=== PATIENT | female | born 1975 | race Two or more races ===

== ENCOUNTER 2016-09-24 13:19 | Observation (INO) | payer SELFPAY ==
[~2016-09-24] VITALS: Ht 154.9 cm; Wt 90.0 kg
[~2016-09-24 13:19] MED LIST: METF500T4 PO; SERT25TA3 PO
[2016-09-24] MEDS ORDERED: CITA10TA4 PO (14:07)
[2016-09-24 14:11] LABS: BLOOD UREA NITROGEN 16 mg/dL (7-18)
[2016-09-24 14:12] LABS: DAU SCREEN DISCLAIMER
[2016-09-24 14:13] LABS: ACETAMINOPHEN < 2 mcg/mL (10-30)
[2016-09-24 14:25] LABS: HCG UR OBC PASS
[2016-09-24] MEDS ORDERED: DOCUSATE 100 MG CAPSULE PO PRN (17:30)
[2016-09-24] MEDS ORDERED: TRAZODONE 50MG TABLET PO PRN (17:30)
[2016-09-24] MEDS ORDERED: ACETAMINOPHEN 325 MG TABLET PO PRN (17:30)
[2016-09-24] MEDS ORDERED: ONDANSETRON ODT 4 MG PO PRN (17:30)
[2016-09-24] MEDS: metFORMIN 500 MG TABLET PO SCH (20:13)
[2016-09-24 20:24] VITALS: BP 112/72
[2016-09-25 07:31] VITALS: BP 112/74
[2016-09-25] MEDS: metFORMIN 500 MG TABLET PO SCH ×2 (08:27→21:04)
[2016-09-25] MEDS: SERTRALINE 50MG TABLET PO SCH (08:27)
[2016-09-25 19:40] VITALS: BP 107/72
[2016-09-26 07:16] VITALS: BP 107/78
[2016-09-26] MEDS: metFORMIN 500 MG TABLET PO SCH (08:33)
[2016-09-26] MEDS: SERTRALINE 50MG TABLET PO SCH (08:34)
== END 2016-09-26 14:30 ==
LOC: ED 13:45 → EDIP 15:39 → 3E 18:19
PROVIDERS: ADMIT Internal Medicine; ATTEND Internal Medicine
DX: R45.851 Suicidal ideations (principal); E11.9 Type 2 diabetes mellitus without complications; I10 Essential (primary) hypertension; E66.9 Obesity, unspecified; Z83.3 Family history of diabetes mellitus; Z82.49 Family history of ischemic heart disease and other diseases of the circulatory system
CPT/HCPCS: 36415; 80048; 80307; 80329; 81025; 82040; 85025; 99285; G0378; G0480

== ENCOUNTER 2017-02-14 18:57 | Emergency (ER) | payer OTHER ==
[~2017-02-14] VITALS: Ht 162.6 cm; Wt 126.0 kg
[~2017-02-14 18:57] MED LIST changes: +CITA10TA4 PO
[2017-02-14] MEDS ORDERED: SODIUM CHLORIDE 0.9% 1,000ML IVBOLUS ONE (19:30)
[2017-02-14] MEDS ORDERED: ONDANSETRON 2MG/ML, 2ML IVPush ONE (19:30)
[2017-02-14] MEDS ORDERED: MORPHINE SULFATE 4 MG/ML, 1ML IVPush PRN (19:30)
[2017-02-14] MEDS ORDERED: SODIUM CHLORIDE FLUSH 10ML SYR IVF ONE (19:30)
[2017-02-14 19:57] LABS: ASPARTATE AMINO TRANSFERASE 19 U/L (15-37); BLOOD UREA NITROGEN 19 mg/dL (7-18)
[2017-02-14] MEDS ORDERED: ONDANSETRON 2MG/ML, 2ML ONE (20:00)
[2017-02-14] MEDS ORDERED: MORPHINE SULFATE 4 MG/ML, 1ML ONE (20:00)
[2017-02-14 20:22] LABS: HEMATOCRIT 43.2 % (34.6-47.8); HEMOGLOBIN 14.6 g/dL (11.7-16.4); WHITE BLOOD COUNT 7.3 x10^3/uL (3.4-10)
[2017-02-14 20:25] VITALS: BP 125/77
== END 2017-02-14 21:13 | disposition home or self-care (01) ==
LOC: ED 21:07
DX: E11.65 Type 2 diabetes mellitus with hyperglycemia (principal); R10.2 Pelvic and perineal pain; F20.9 Schizophrenia, unspecified; F31.9 Bipolar disorder, unspecified; I10 Essential (primary) hypertension; J45.909 Unspecified asthma, uncomplicated
CPT/HCPCS: 36415; 80053; 81003; 83690; 84703; 85025; 96361; 96374; 96375; 99284; J2405; J7030

== ENCOUNTER 2017-02-16 19:00 | Emergency (ER) | payer MEDICAID ==
[~2017-02-16] VITALS: Ht 152.4 cm; Wt 125.6 kg
[2017-02-16 19:06] VITALS: BP 120/81
[2017-02-16] MEDS ORDERED: ALBUTEROL/IPRATROPIUM 2.5MG/0.5MG, 3 ML NPPB ONE (20:00)
== END 2017-02-16 20:44 | disposition home or self-care (01) ==
LOC: ED 20:15
DX: J20.9 Acute bronchitis, unspecified (principal); E11.65 Type 2 diabetes mellitus with hyperglycemia; I10 Essential (primary) hypertension; J45.909 Unspecified asthma, uncomplicated; Z59.0 Homelessness; F20.9 Schizophrenia, unspecified
CPT/HCPCS: 71020; 82962; 94640; 99284; J7620

== ENCOUNTER 2017-03-01 23:37 | Inpatient (IN) | payer MEDICAID ==
[~2017-03-01] VITALS: Ht 162.6 cm; Wt 125.4 kg
[2017-03-02] MEDS ORDERED: ALBU6.7H INH (01:55)
[2017-03-02] MEDS ORDERED: SODIUM CHLORIDE 0.9% 1,000ML IVBOLUS ONE ×2 (02:00→03:00)
[2017-03-02 02:04] LABS: HEMATOCRIT 36.7 % (34.6-47.8); HEMOGLOBIN 12.5 g/dL (11.7-16.4); WHITE BLOOD COUNT 15.6 x10^3/uL (3.4-10)
[2017-03-02 02:12] LABS: BLOOD UREA NITROGEN 12 mg/dL (7-18)
[2017-03-02] MEDS ORDERED: OMNIPAQUE 350 MG/ML, 100ML BOTTLE ONE (03:00)
[2017-03-02] MEDS ORDERED: SODIUM CHLORIDE 0.9% 1,000 ML IV SCH (03:11)
[2017-03-02] MEDS ORDERED: ONDANSETRON 2MG/ML, 2ML IVPush PRN (03:30)
[2017-03-02] MEDS ORDERED: hydrALAzine 20 MG/ML, 1ML IVPush PRN (03:30)
[2017-03-02] MEDS ORDERED: VANCOMYCIN PER PHARMACY IV ONE (03:30)
[2017-03-02] MEDS ORDERED: VANCOMYCIN 2,200 MG in SODIUM CHLORIDE 0.9% 500 ML IV ONE (03:30)
[2017-03-02] MEDS ORDERED: PHARMACY MAY ADJ FOR RENAL FX MC PRN ×2 (03:30)
[2017-03-02] MEDS ORDERED: VANCOMYCIN PER PHARMACY MC PRN (03:30)
[2017-03-02] MEDS ORDERED: PIPERACILLIN/TAZO/PMX 3.375GM 50 ML IVPB ONE (03:30)
[2017-03-02] MEDS: PIPERACILLIN/TAZO/PMX 4.5GM 100 ML IVPB SCH ×3 (06:13→22:23)
[2017-03-02] MEDS ORDERED: ENOXAPARIN 40 MG/0.4 ML ONE (06:18)
[2017-03-02] MEDS: ENOXAPARIN 40 MG/0.4 ML SQ SCH (06:22)
[2017-03-02] MEDS: INSULIN ASPART 100 UNITS/ML, PEN SQ-INSULIN SCH ×4 (07:00→21:06)
[2017-03-02] MEDS: ALBUTEROL/IPRATROPIUM 2.5MG/0.5MG, 3 ML NPPB SCH ×4 (07:00→20:10)
[2017-03-02] MEDS ORDERED: PHARMACOKINETIC MONITORING MC PRN (08:30)
[2017-03-02] MEDS: PANTOPRAZOLE 40 MG IV IVPush SCH (09:30)
[2017-03-02] MEDS: CITALOPRAM 10 MG TABLET PO SCH (09:30)
[2017-03-02] MEDS ORDERED: VANCOMYCIN 1,600 MG in SODIUM CHLORIDE 0.9% 250 ML IV SCH (10:00)
[2017-03-02] MEDS: HYDROmorphone 2 MG/ML, 1ML IVPush PRN ×3 (10:00→20:11)
[2017-03-02 11:23] VITALS: BP 111/77
[2017-03-02 14:00] VITALS: BP 107/55
[2017-03-02 14:46] LABS: RAPID INFLUENZA A Negative (Negative); RAPID INFLUENZA B Negative (Negative)
[2017-03-02 21:04] VITALS: BP 136/82
[2017-03-03 01:01] VITALS: BP 105/70
[2017-03-03] MEDS: HYDROmorphone 2 MG/ML, 1ML IVPush PRN ×3 (01:14→21:27)
[2017-03-03] MEDS: SODIUM CHLORIDE 0.9% 1,000 ML IV SCH ×4 (02:34→23:24)
[2017-03-03] MEDS: ENOXAPARIN 40 MG/0.4 ML SQ SCH (04:04)
[2017-03-03 05:37] LABS: BLOOD UREA NITROGEN 8 mg/dL (7-18)
[2017-03-03 05:47] LABS: HEMATOCRIT 35.4 % (34.6-47.8); HEMOGLOBIN 11.8 g/dL (11.7-16.4); WHITE BLOOD COUNT 12.1 x10^3/uL (3.4-10)
[2017-03-03] MEDS: PIPERACILLIN/TAZO/PMX 4.5GM 100 ML IVPB SCH ×3 (06:01→22:09)
[2017-03-03] MEDS: ALBUTEROL/IPRATROPIUM 2.5MG/0.5MG, 3 ML NPPB SCH ×4 (07:00→20:00)
[2017-03-03] MEDS: PANTOPRAZOLE 40 MG IV IVPush SCH (08:04)
[2017-03-03] MEDS: INSULIN ASPART 100 UNITS/ML, PEN SQ-INSULIN SCH ×4 (08:05→21:28)
[2017-03-03 08:30] VITALS: BP 101/69
[2017-03-03] MEDS: CITALOPRAM 10 MG TABLET PO SCH (08:32)
[2017-03-03] MEDS: GUAIFENESIN/DM 100-10MG, 5ML UDC PO PRN ×3 (11:24→23:25)
[2017-03-03 13:28] VITALS: BP 112/63
[2017-03-03 19:42] VITALS: BP 112/72
[2017-03-04 02:59] VITALS: BP 99/62
[2017-03-04] MEDS: ENOXAPARIN 40 MG/0.4 ML SQ SCH (03:14)
[2017-03-04] MEDS: HYDROmorphone 2 MG/ML, 1ML IVPush PRN ×3 (03:18→17:57)
[2017-03-04] MEDS: GUAIFENESIN/DM 100-10MG, 5ML UDC PO PRN (06:02)
[2017-03-04] MEDS: SODIUM CHLORIDE 0.9% 1,000 ML IV SCH ×3 (06:02→21:32)
[2017-03-04] MEDS: PIPERACILLIN/TAZO/PMX 4.5GM 100 ML IVPB SCH ×3 (06:02→21:21)
[2017-03-04 06:57] VITALS: BP 107/67
[2017-03-04] MEDS: ALBUTEROL/IPRATROPIUM 2.5MG/0.5MG, 3 ML NPPB SCH ×4 (07:00→21:00)
[2017-03-04] MEDS: PANTOPRAZOLE 40 MG IV IVPush SCH (09:05)
[2017-03-04] MEDS: INSULIN ASPART 100 UNITS/ML, PEN SQ-INSULIN SCH ×4 (09:05→21:22)
[2017-03-04] MEDS: CITALOPRAM 10 MG TABLET PO SCH (09:05)
[2017-03-04 12:56] VITALS: BP 108/77
[2017-03-04] MEDS: GUAIFENESIN/DM 100-10MG, 5ML UDC PO SCH ×3 (14:30→21:21)
[2017-03-04] MEDS: KETOROLAC 30 MG/1 ML IVPush SCH ×2 (16:02→21:20)
[2017-03-04] MEDS: ACETAMINOPHEN 325 MG TABLET PO SCH ×2 (16:03→21:20)
[2017-03-04 19:23] VITALS: BP 114/70
[2017-03-04] MEDS: DIPHENHYDRAMINE 50 MG CAPSULE PO SCH (21:21)
[2017-03-04] MEDS: FAMOTIDINE 20 MG TABLET PO SCH (21:21)
[2017-03-05 01:54] VITALS: BP 103/62
[2017-03-05] MEDS: ALBUTEROL/IPRATROPIUM 2.5MG/0.5MG, 3 ML NPPB SCH ×5 (03:04→19:25)
[2017-03-05] MEDS: KETOROLAC 30 MG/1 ML IVPush SCH ×2 (03:19→08:56)
[2017-03-05] MEDS: ENOXAPARIN 40 MG/0.4 ML SQ SCH (03:19)
[2017-03-05] MEDS: ACETAMINOPHEN 325 MG TABLET PO SCH ×4 (03:19→20:23)
[2017-03-05] MEDS: OXYcodone IR 5MG TABLET PO PRN ×3 (03:19→20:23)
[2017-03-05 06:11] LABS: HEMATOCRIT 30.2 % (34.6-47.8); HEMOGLOBIN 10.3 g/dL (11.7-16.4); WHITE BLOOD COUNT 8.3 x10^3/uL (3.4-10)
[2017-03-05 06:39] LABS: BLOOD UREA NITROGEN 6 mg/dL (7-18)
[2017-03-05] MEDS: GUAIFENESIN/DM 200-20MG, 10ML UDC PO SCH ×5 (06:45→22:10)
[2017-03-05] MEDS: PIPERACILLIN/TAZO/PMX 4.5GM 100 ML IVPB SCH ×3 (06:45→22:10)
[2017-03-05] MEDS: SODIUM CHLORIDE 0.9% 1,000 ML IV SCH ×2 (06:45→17:52)
[2017-03-05] MEDS: FAMOTIDINE 20 MG TABLET PO SCH ×2 (08:56→20:23)
[2017-03-05] MEDS: CITALOPRAM 10 MG TABLET PO SCH (08:56)
[2017-03-05] MEDS: INSULIN ASPART 100 UNITS/ML, PEN SQ-INSULIN SCH ×4 (08:57→19:58)
[2017-03-05 09:10] VITALS: BP 105/66
[2017-03-05 13:25] VITALS: BP 113/73
[2017-03-05 20:13] VITALS: BP 132/82
[2017-03-05] MEDS: DIPHENHYDRAMINE 50 MG CAPSULE PO SCH (20:23)
[2017-03-06] MEDS: SODIUM CHLORIDE 0.9% 1,000 ML IV SCH ×3 (01:00→20:10)
[2017-03-06 02:57] VITALS: BP 117/78
[2017-03-06] MEDS: ACETAMINOPHEN 325 MG TABLET PO SCH ×4 (03:00→20:10)
[2017-03-06] MEDS: D5%-0.9% NACL 500 ML IV SCH ×2 (03:00→09:06)
[2017-03-06] MEDS: ENOXAPARIN 40 MG/0.4 ML SQ SCH (03:25)
[2017-03-06] MEDS: GUAIFENESIN/DM 200-20MG, 10ML UDC PO SCH ×5 (04:21→22:29)
[2017-03-06 05:00] LABS: HEMATOCRIT 31.8 % (34.6-47.8); HEMOGLOBIN 10.7 g/dL (11.7-16.4); WHITE BLOOD COUNT 8.8 x10^3/uL (3.4-10)
[2017-03-06] MEDS: PIPERACILLIN/TAZO/PMX 4.5GM 100 ML IVPB SCH ×3 (05:42→22:29)
[2017-03-06] MEDS: ALBUTEROL/IPRATROPIUM 2.5MG/0.5MG, 3 ML NPPB SCH ×4 (06:47→18:28)
[2017-03-06] MEDS: INSULIN ASPART 100 UNITS/ML, PEN SQ-INSULIN SCH ×4 (07:00→20:11)
[2017-03-06 07:56] VITALS: BP 118/76
[2017-03-06] MEDS: OXYcodone IR 5MG TABLET PO PRN ×2 (09:04→15:02)
[2017-03-06] MEDS: FAMOTIDINE 20 MG TABLET PO SCH ×2 (09:05→20:10)
[2017-03-06] MEDS: CITALOPRAM 10 MG TABLET PO SCH (09:05)
[2017-03-06 09:29] LABS: HCG UR LOT HCG7030192
[2017-03-06 09:38] LABS: HCG UR OBC PASS
[2017-03-06] MEDS ORDERED: FLUMAZENIL 0.1 MG/1 ML, 5ML ONE (09:53)
[2017-03-06] MEDS ORDERED: FENTANYL PF 100 MCG/2ML ONE (09:53)
[2017-03-06] MEDS ORDERED: MIDAZOLAM 1 MG/ML, 5ML ONE ×2 (09:53)
[2017-03-06] MEDS ORDERED: NALOXONE 1 MG/ML, 2ML ONE (09:54)
[2017-03-06 13:00] VITALS: BP 111/78
[2017-03-06] MEDS: HYDROmorphone 2 MG/ML, 1ML IVPush PRN (18:21)
[2017-03-06] MEDS: DIPHENHYDRAMINE 50 MG CAPSULE PO SCH (20:10)
[2017-03-06 20:13] VITALS: BP 109/62
[2017-03-07] MEDS: ACETAMINOPHEN 325 MG TABLET PO SCH ×4 (02:19→20:10)
[2017-03-07] MEDS: OXYcodone IR 5MG TABLET PO PRN ×2 (02:19→14:30)
[2017-03-07] MEDS: SODIUM CHLORIDE 0.9% 1,000 ML IV SCH ×3 (02:19→20:21)
[2017-03-07] MEDS: ENOXAPARIN 40 MG/0.4 ML SQ SCH (02:19)
[2017-03-07 03:21] VITALS: BP 127/84
[2017-03-07] MEDS: GUAIFENESIN/DM 200-20MG, 10ML UDC PO SCH ×5 (05:30→21:35)
[2017-03-07] MEDS: PIPERACILLIN/TAZO/PMX 4.5GM 100 ML IVPB SCH ×3 (05:31→21:34)
[2017-03-07 07:30] VITALS: BP 115/78
[2017-03-07] MEDS: ALBUTEROL/IPRATROPIUM 2.5MG/0.5MG, 3 ML NPPB SCH ×4 (08:00→19:04)
[2017-03-07] MEDS: FAMOTIDINE 20 MG TABLET PO SCH ×2 (08:09→20:10)
[2017-03-07] MEDS: CITALOPRAM 10 MG TABLET PO SCH (08:10)
[2017-03-07] MEDS: INSULIN ASPART 100 UNITS/ML, PEN SQ-INSULIN SCH ×4 (08:11→20:21)
[2017-03-07 14:43] VITALS: BP 122/76
[2017-03-07 18:45] VITALS: BP 100/69
[2017-03-07] MEDS: DIPHENHYDRAMINE 50 MG CAPSULE PO SCH (20:10)
[2017-03-08 00:50] VITALS: BP 98/64
[2017-03-08] MEDS: ENOXAPARIN 40 MG/0.4 ML SQ SCH (02:40)
[2017-03-08] MEDS: OXYcodone IR 5MG TABLET PO PRN ×5 (02:41→23:48)
[2017-03-08] MEDS: ACETAMINOPHEN 325 MG TABLET PO SCH ×4 (02:41→21:39)
[2017-03-08] MEDS: SODIUM CHLORIDE 0.9% 1,000 ML IV SCH ×3 (02:48→23:48)
[2017-03-08] MEDS ORDERED: ALBUTEROL/IPRATROPIUM 2.5MG/0.5MG, 3 ML NPPB PRN (03:30)
[2017-03-08] MEDS: PIPERACILLIN/TAZO/PMX 4.5GM 100 ML IVPB SCH ×3 (05:36→21:39)
[2017-03-08] MEDS: GUAIFENESIN/DM 200-20MG, 10ML UDC PO SCH ×5 (05:37→21:38)
[2017-03-08 06:09] LABS: BLOOD UREA NITROGEN 5 mg/dL (7-18)
[2017-03-08 06:23] VITALS: BP 114/76
[2017-03-08] MEDS: ALBUTEROL/IPRATROPIUM 2.5MG/0.5MG, 3 ML NPPB SCH ×4 (06:35→21:20)
[2017-03-08] MEDS: INSULIN ASPART 100 UNITS/ML, PEN SQ-INSULIN SCH ×4 (08:08→21:58)
[2017-03-08] MEDS: FAMOTIDINE 20 MG TABLET PO SCH ×2 (08:08→21:38)
[2017-03-08] MEDS: CITALOPRAM 10 MG TABLET PO SCH (08:08)
[2017-03-08 12:35] VITALS: BP 115/80
[2017-03-08] MEDS: POTASSIUM CHLORIDE 20 MEQ TAB.ER.PRT PO SCH ×2 (17:04→21:39)
[2017-03-08 19:08] VITALS: BP 135/84
[2017-03-08] MEDS: DIPHENHYDRAMINE 50 MG CAPSULE PO SCH (21:45)
[2017-03-09 00:25] VITALS: BP 110/70
[2017-03-09] MEDS: ENOXAPARIN 40 MG/0.4 ML SQ SCH (03:59)
[2017-03-09] MEDS: OXYcodone IR 5MG TABLET PO PRN ×3 (03:59→19:17)
[2017-03-09] MEDS: ACETAMINOPHEN 325 MG TABLET PO SCH ×2 (03:59→09:26)
[2017-03-09] MEDS: GUAIFENESIN/DM 200-20MG, 10ML UDC PO SCH ×5 (06:09→22:00)
[2017-03-09] MEDS: PIPERACILLIN/TAZO/PMX 4.5GM 100 ML IVPB SCH (06:09)
[2017-03-09] MEDS: SODIUM CHLORIDE 0.9% 1,000 ML IV SCH (06:19)
[2017-03-09 06:22] LABS: BLOOD UREA NITROGEN 4 mg/dL (7-18)
[2017-03-09] MEDS: INSULIN ASPART 100 UNITS/ML, PEN SQ-INSULIN SCH ×4 (06:23→21:07)
[2017-03-09 06:27] VITALS: BP 102/73
[2017-03-09] MEDS: ALBUTEROL/IPRATROPIUM 2.5MG/0.5MG, 3 ML NPPB SCH ×4 (08:16→21:20)
[2017-03-09] MEDS: CITALOPRAM 10 MG TABLET PO SCH (09:26)
[2017-03-09] MEDS: FAMOTIDINE 20 MG TABLET PO SCH (09:26)
[2017-03-09] MEDS: LEVOFLOXACIN/PMX 750MG/150ML 150 ML IV SCH (12:01)
[2017-03-09 13:36] VITALS: BP 98/67
[2017-03-09] MEDS ORDERED: MAGNESIUM SULFATE PMX 2GM/50ML 50 ML IV ONE (14:00)
[2017-03-09] MEDS ORDERED: ACETAMINOPHEN 325 MG TABLET PO PRN (15:00)
[2017-03-09] MEDS: POTASSIUM CHLORIDE 20 MEQ TAB.ER.PRT PO SCH (16:47)
[2017-03-09 19:58] VITALS: BP 132/83
[2017-03-09 20:00] VITALS: BP 132/83
[2017-03-09] MEDS: DIPHENHYDRAMINE 50 MG CAPSULE PO SCH (21:00)
[2017-03-10] MEDS: OXYcodone IR 5MG TABLET PO PRN ×6 (00:13→21:45)
[2017-03-10 01:15] VITALS: BP 169/74
[2017-03-10] MEDS: ENOXAPARIN 40 MG/0.4 ML SQ SCH (04:00)
[2017-03-10 05:45] LABS: HEMATOCRIT 30.9 % (34.6-47.8); HEMOGLOBIN 10.3 g/dL (11.7-16.4); WHITE BLOOD COUNT 8.7 x10^3/uL (3.4-10)
[2017-03-10 05:56] LABS: BLOOD UREA NITROGEN 5 mg/dL (7-18)
[2017-03-10 07:40] VITALS: BP 117/83
[2017-03-10] MEDS: CITALOPRAM 10 MG TABLET PO SCH (07:44)
[2017-03-10] MEDS: INSULIN ASPART 100 UNITS/ML, PEN SQ-INSULIN SCH ×4 (07:44→21:00)
[2017-03-10] MEDS: GUAIFENESIN/DM 200-20MG, 10ML UDC PO SCH ×5 (07:44→21:49)
[2017-03-10] MEDS: POTASSIUM CHLORIDE 20 MEQ TAB.ER.PRT PO SCH (07:44)
[2017-03-10] MEDS: ALBUTEROL/IPRATROPIUM 2.5MG/0.5MG, 3 ML NPPB SCH ×4 (08:30→18:48)
[2017-03-10] MEDS: LEVOFLOXACIN/PMX 750MG/150ML 150 ML IV SCH (12:57)
[2017-03-10 14:44] VITALS: BP 106/71
[2017-03-10 21:15] VITALS: BP 112/54
[2017-03-10] MEDS: DIPHENHYDRAMINE 50 MG CAPSULE PO SCH (21:45)
[2017-03-11 02:30] VITALS: BP 102/55
[2017-03-11] MEDS: ENOXAPARIN 40 MG/0.4 ML SQ SCH (04:25)
[2017-03-11 05:45] LABS: HEMATOCRIT 32.6 % (34.6-47.8); HEMOGLOBIN 10.7 g/dL (11.7-16.4); WHITE BLOOD COUNT 8.3 x10^3/uL (3.4-10)
[2017-03-11 05:58] LABS: BLOOD UREA NITROGEN 4 mg/dL (7-18)
[2017-03-11 06:01] LABS: ASPARTATE AMINO TRANSFERASE 10 U/L (15-37)
[2017-03-11] MEDS: GUAIFENESIN/DM 200-20MG, 10ML UDC PO SCH ×5 (06:36→23:00)
[2017-03-11] MEDS: INSULIN ASPART 100 UNITS/ML, PEN SQ-INSULIN SCH ×4 (07:00→21:02)
[2017-03-11] MEDS: ALBUTEROL/IPRATROPIUM 2.5MG/0.5MG, 3 ML NPPB SCH ×4 (07:30→18:57)
[2017-03-11] MEDS: CITALOPRAM 10 MG TABLET PO SCH (08:16)
[2017-03-11 10:03] VITALS: BP 103/71
[2017-03-11] MEDS: OXYcodone IR 5MG TABLET PO PRN (10:57)
[2017-03-11] MEDS: LEVOFLOXACIN/PMX 750MG/150ML 150 ML IV SCH (12:23)
[2017-03-11 14:24] VITALS: BP 113/80
[2017-03-11 20:45] VITALS: BP 107/70
[2017-03-11] MEDS: DIPHENHYDRAMINE 50 MG CAPSULE PO SCH (21:02)
[2017-03-11] MEDS ORDERED: ACETAMINOPHEN 325 MG TABLET PO PRN (22:00)
[2017-03-11] MEDS ORDERED: PHARMACY MAY ADJ FOR RENAL FX MC PRN (22:00)
[2017-03-11] MEDS ORDERED: hydrALAzine 20 MG/ML, 1ML IVPush PRN (22:00)
[2017-03-11] MEDS ORDERED: ONDANSETRON 2MG/ML, 2ML IVPush PRN (22:00)
[2017-03-11] MEDS ORDERED: HYDROmorphone 2 MG/ML, 1ML IVPush PRN (22:00)
[2017-03-11] MEDS: NYSTATIN TOPICAL POWDER 15GM TP SCH (22:19)
[2017-03-12 01:41] VITALS: BP 127/78
[2017-03-12] MEDS: ENOXAPARIN 40 MG/0.4 ML SQ SCH (03:25)
[2017-03-12 05:10] LABS: HEMATOCRIT 32.3 % (34.6-47.8); HEMOGLOBIN 10.7 g/dL (11.7-16.4); WHITE BLOOD COUNT 6.8 x10^3/uL (3.4-10)
[2017-03-12 05:21] LABS: BLOOD UREA NITROGEN 2 mg/dL (7-18)
[2017-03-12] MEDS: ALBUTEROL/IPRATROPIUM 2.5MG/0.5MG, 3 ML NPPB SCH ×4 (06:17→20:21)
[2017-03-12] MEDS: GUAIFENESIN/DM 200-20MG, 10ML UDC PO SCH ×5 (06:36→22:07)
[2017-03-12 07:23] VITALS: BP 118/81
[2017-03-12] MEDS: CITALOPRAM 10 MG TABLET PO SCH (08:18)
[2017-03-12] MEDS: INSULIN ASPART 100 UNITS/ML, PEN SQ-INSULIN SCH ×4 (08:19→22:22)
[2017-03-12] MEDS: NYSTATIN TOPICAL POWDER 15GM TP SCH ×2 (08:19→22:07)
[2017-03-12] MEDS: LEVOFLOXACIN/PMX 750MG/150ML 150 ML IV SCH (12:46)
[2017-03-12 13:17] VITALS: BP 96/64
[2017-03-12] MEDS: CEFAZOLIN 2,000 MG in SODIUM CHLORIDE 0.9% 50 ML IV SCH (16:26)
[2017-03-12 17:44] VITALS: BP 105/64
[2017-03-12 19:36] VITALS: BP 104/72
[2017-03-12] MEDS: DIPHENHYDRAMINE 50 MG CAPSULE PO SCH (22:07)
[2017-03-12] MEDS: OXYcodone IR 5MG TABLET PO PRN (22:23)
[2017-03-13] MEDS: CEFAZOLIN 2,000 MG in SODIUM CHLORIDE 0.9% 50 ML IV SCH ×3 (00:51→17:01)
[2017-03-13 01:29] VITALS: BP 113/78
[2017-03-13] MEDS: ENOXAPARIN 40 MG/0.4 ML SQ SCH (04:17)
[2017-03-13] MEDS: GUAIFENESIN/DM 200-20MG, 10ML UDC PO SCH ×5 (04:57→21:38)
[2017-03-13] MEDS: ALBUTEROL/IPRATROPIUM 2.5MG/0.5MG, 3 ML NPPB SCH ×3 (05:30→21:10)
[2017-03-13 07:25] VITALS: BP 120/79
[2017-03-13] MEDS: INSULIN ASPART 100 UNITS/ML, PEN SQ-INSULIN SCH ×4 (08:42→21:44)
[2017-03-13] MEDS: CITALOPRAM 10 MG TABLET PO SCH (08:42)
[2017-03-13] MEDS: NYSTATIN TOPICAL POWDER 15GM TP SCH ×2 (08:43→21:38)
[2017-03-13 13:51] VITALS: BP 120/82
[2017-03-13] MEDS: ALBUTEROL/IPRATROPIUM 2.5MG/0.5MG, 3 ML NPPB PRN (15:40)
[2017-03-13 20:08] VITALS: BP 116/88
[2017-03-13] MEDS: DIPHENHYDRAMINE 50 MG CAPSULE PO SCH (21:37)
[2017-03-13] MEDS: OXYcodone IR 5MG TABLET PO PRN (21:37)
[2017-03-14] MEDS: CEFAZOLIN 2,000 MG in SODIUM CHLORIDE 0.9% 50 ML IV SCH ×2 (00:26→08:23)
[2017-03-14 01:56] VITALS: BP 99/63
[2017-03-14] MEDS: ALBUTEROL/IPRATROPIUM 2.5MG/0.5MG, 3 ML NPPB SCH ×4 (02:05→20:50)
[2017-03-14] MEDS: ENOXAPARIN 40 MG/0.4 ML SQ SCH (06:21)
[2017-03-14] MEDS: GUAIFENESIN/DM 200-20MG, 10ML UDC PO SCH ×5 (06:21→21:20)
[2017-03-14] MEDS: INSULIN ASPART 100 UNITS/ML, PEN SQ-INSULIN SCH (07:00)
[2017-03-14 08:13] VITALS: BP 120/83
[2017-03-14] MEDS: CITALOPRAM 10 MG TABLET PO SCH (08:23)
[2017-03-14] MEDS: OXYcodone IR 5MG TABLET PO PRN ×2 (08:23→17:17)
[2017-03-14] MEDS: NYSTATIN TOPICAL POWDER 15GM TP SCH ×2 (08:29→21:05)
[2017-03-14 13:21] LABS: BLOOD UREA NITROGEN 5 mg/dL (7-18)
[2017-03-14 14:00] VITALS: BP 110/75
[2017-03-14] MEDS: CEFAZOLIN PMX 2GM/50ML 50 ML IVPB SCH (17:13)
[2017-03-14] MEDS: DIPHENHYDRAMINE 50 MG CAPSULE PO SCH (19:48)
[2017-03-14 19:59] VITALS: BP 108/71
[2017-03-15] MEDS: CEFAZOLIN PMX 2GM/50ML 50 ML IVPB SCH ×3 (00:55→16:57)
[2017-03-15 01:39] VITALS: BP 135/84
[2017-03-15] MEDS: ALBUTEROL/IPRATROPIUM 2.5MG/0.5MG, 3 ML NPPB PRN (01:47)
[2017-03-15] MEDS: GUAIFENESIN/DM 200-20MG, 10ML UDC PO SCH ×5 (04:41→20:11)
[2017-03-15 05:15] LABS: HEMATOCRIT 35.3 % (34.6-47.8); HEMOGLOBIN 11.7 g/dL (11.7-16.4); WHITE BLOOD COUNT 7.7 x10^3/uL (3.4-10)
[2017-03-15 05:30] LABS: BLOOD UREA NITROGEN 11 mg/dL (7-18)
[2017-03-15] MEDS: ALBUTEROL/IPRATROPIUM 2.5MG/0.5MG, 3 ML NPPB SCH ×2 (05:36→19:16)
[2017-03-15 07:05] VITALS: BP 117/78
[2017-03-15] MEDS: CITALOPRAM 10 MG TABLET PO SCH (08:41)
[2017-03-15] MEDS: ENOXAPARIN 40 MG/0.4 ML SQ SCH (08:41)
[2017-03-15] MEDS: NYSTATIN TOPICAL POWDER 15GM TP SCH ×2 (08:45→20:11)
[2017-03-15 13:19] VITALS: BP 102/70
[2017-03-15] MEDS: ENOXAPARIN 30 MG/0.3 ML SQ SCH (20:11)
[2017-03-15] MEDS: DIPHENHYDRAMINE 50 MG CAPSULE PO SCH (20:11)
[2017-03-15] MEDS: INSULIN DETEMIR 100 UNITS/ML, PEN SQ-INSULIN SCH (20:12)
[2017-03-15 20:40] VITALS: BP 104/63
[2017-03-16] MEDS: CEFAZOLIN PMX 2GM/50ML 50 ML IVPB SCH ×3 (00:54→16:38)
[2017-03-16 02:51] VITALS: BP 123/84
[2017-03-16] MEDS: ALBUTEROL/IPRATROPIUM 2.5MG/0.5MG, 3 ML NPPB SCH ×4 (04:30→19:25)
[2017-03-16] MEDS: GUAIFENESIN/DM 200-20MG, 10ML UDC PO SCH ×5 (05:04→21:11)
[2017-03-16 07:03] VITALS: BP 131/84
[2017-03-16] MEDS: CITALOPRAM 10 MG TABLET PO SCH (07:48)
[2017-03-16] MEDS: ENOXAPARIN 30 MG/0.3 ML SQ SCH ×2 (07:48→21:20)
[2017-03-16] MEDS: NYSTATIN TOPICAL POWDER 15GM TP SCH ×2 (07:49→21:20)
[2017-03-16] MEDS: INSULIN DETEMIR 100 UNITS/ML, PEN SQ-INSULIN SCH ×2 (07:49→21:20)
[2017-03-16 12:38] VITALS: BP 91/65
[2017-03-16 18:37] VITALS: BP 96/66
[2017-03-16] MEDS: DIPHENHYDRAMINE 50 MG CAPSULE PO SCH (21:20)
[2017-03-17] MEDS: CEFAZOLIN PMX 2GM/50ML 50 ML IVPB SCH ×3 (00:36→17:41)
[2017-03-17] MEDS: GUAIFENESIN/DM 200-20MG, 10ML UDC PO SCH ×6 (00:43→20:40)
[2017-03-17 00:46] VITALS: BP 98/64
[2017-03-17] MEDS: ALBUTEROL/IPRATROPIUM 2.5MG/0.5MG, 3 ML NPPB SCH ×4 (01:05→18:56)
[2017-03-17 05:37] LABS: HEMATOCRIT 36.5 % (34.6-47.8)
[2017-03-17 05:55] LABS: ASPARTATE AMINO TRANSFERASE 10 U/L (15-37); BLOOD UREA NITROGEN 19 mg/dL (7-18)
[2017-03-17 07:04] VITALS: BP 101/68
[2017-03-17] MEDS: CITALOPRAM 10 MG TABLET PO SCH (09:08)
[2017-03-17] MEDS: NYSTATIN TOPICAL POWDER 15GM TP SCH ×2 (09:09→20:40)
[2017-03-17] MEDS: OXYcodone IR 5MG TABLET PO PRN (09:09)
[2017-03-17] MEDS: ENOXAPARIN 30 MG/0.3 ML SQ SCH ×2 (09:09→20:40)
[2017-03-17] MEDS ORDERED: OMNIPAQUE 350 MG/ML, 75ML BOTTLE ONE (11:55)
[2017-03-17 12:45] VITALS: BP 127/73
[2017-03-17] MEDS: INSULIN DETEMIR 100 UNITS/ML, PEN SQ-INSULIN SCH (14:20)
[2017-03-17 20:21] VITALS: BP 123/79
[2017-03-17] MEDS: DIPHENHYDRAMINE 50 MG CAPSULE PO SCH (20:40)
[2017-03-18 01:33] VITALS: BP 112/70
[2017-03-18] MEDS: INSULIN DETEMIR 100 UNITS/ML, PEN SQ-INSULIN SCH ×2 (01:59→13:49)
[2017-03-18] MEDS: CEFAZOLIN PMX 2GM/50ML 50 ML IVPB SCH ×3 (01:59→17:06)
[2017-03-18] MEDS: ALBUTEROL/IPRATROPIUM 2.5MG/0.5MG, 3 ML NPPB SCH ×5 (02:28→19:10)
[2017-03-18] MEDS: GUAIFENESIN/DM 200-20MG, 10ML UDC PO SCH ×5 (05:31→21:58)
[2017-03-18 05:55] LABS: HEMATOCRIT 36.6 % (34.6-47.8); HEMOGLOBIN 12.2 g/dL (11.7-16.4); WHITE BLOOD COUNT 7.6 x10^3/uL (3.4-10)
[2017-03-18 06:07] LABS: BLOOD UREA NITROGEN 16 mg/dL (7-18)
[2017-03-18 06:52] VITALS: BP 112/78
[2017-03-18] MEDS: CITALOPRAM 10 MG TABLET PO SCH (08:59)
[2017-03-18] MEDS: ENOXAPARIN 30 MG/0.3 ML SQ SCH ×2 (08:59→20:17)
[2017-03-18] MEDS: NYSTATIN TOPICAL POWDER 15GM TP SCH ×2 (09:00→20:17)
[2017-03-18] MEDS ORDERED: ALBUTEROL/IPRATROPIUM 2.5MG/0.5MG, 3 ML NPPB SCH (11:00)
[2017-03-18 13:24] VITALS: BP 106/72
[2017-03-18] MEDS: metFORMIN 850 MG TABLET PO SCH (17:06)
[2017-03-18] MEDS ORDERED: ONDANSETRON 2MG/ML, 2ML IVPush PRN (19:30)
[2017-03-18] MEDS ORDERED: hydrALAzine 20 MG/ML, 1ML IVPush PRN (19:30)
[2017-03-18] MEDS ORDERED: PHARMACY MAY ADJ FOR RENAL FX MC PRN (19:30)
[2017-03-18] MEDS ORDERED: ACETAMINOPHEN 325 MG TABLET PO PRN (19:30)
[2017-03-18 19:34] VITALS: BP 108/72
[2017-03-18] MEDS: DIPHENHYDRAMINE 50 MG CAPSULE PO SCH (21:58)
[2017-03-19 01:06] VITALS: BP 124/75
[2017-03-19] MEDS: CEFAZOLIN PMX 2GM/50ML 50 ML IVPB SCH ×3 (01:43→18:26)
[2017-03-19] MEDS: GUAIFENESIN/DM 200-20MG, 10ML UDC PO SCH ×6 (01:43→21:37)
[2017-03-19] MEDS: ALBUTEROL/IPRATROPIUM 2.5MG/0.5MG, 3 ML NPPB SCH ×5 (01:50→19:50)
[2017-03-19] MEDS: INSULIN DETEMIR 100 UNITS/ML, PEN SQ-INSULIN SCH ×2 (01:59→12:02)
[2017-03-19 03:24] LABS: HEMATOCRIT 36.2 % (34.6-47.8); HEMOGLOBIN 11.9 g/dL (11.7-16.4); WHITE BLOOD COUNT 8.6 x10^3/uL (3.4-10)
[2017-03-19 03:38] LABS: ASPARTATE AMINO TRANSFERASE 14 U/L (15-37); BLOOD UREA NITROGEN 19 mg/dL (7-18)
[2017-03-19 06:45] VITALS: BP 105/75
[2017-03-19] MEDS: CITALOPRAM 10 MG TABLET PO SCH (08:19)
[2017-03-19] MEDS: metFORMIN 850 MG TABLET PO SCH ×2 (08:19→17:52)
[2017-03-19] MEDS: ENOXAPARIN 30 MG/0.3 ML SQ SCH ×2 (08:19→21:38)
[2017-03-19] MEDS: NYSTATIN TOPICAL POWDER 15GM TP SCH ×2 (09:00→21:00)
[2017-03-19 13:02] VITALS: BP 114/76
[2017-03-19] MEDS ORDERED: PNEUMOC 13-VALENT VACC, 0.5 ML IM-VACC ONE (18:00)
[2017-03-19] MEDS ORDERED: FLU VACC QS2017-18 (36MOS+) UP/PF 0.5 ML IM-VACC ONE (18:00)
[2017-03-19 19:51] VITALS: BP 133/85
[2017-03-19] MEDS: DIPHENHYDRAMINE 50 MG CAPSULE PO SCH (21:37)
[2017-03-20] MEDS: INSULIN DETEMIR 100 UNITS/ML, PEN SQ-INSULIN SCH ×3 (00:10→21:37)
[2017-03-20] MEDS: ALBUTEROL/IPRATROPIUM 2.5MG/0.5MG, 3 ML NPPB SCH ×7 (00:54→22:28)
[2017-03-20 01:30] VITALS: BP 113/77
[2017-03-20] MEDS: CEFAZOLIN PMX 2GM/50ML 50 ML IVPB SCH ×3 (02:54→18:05)
[2017-03-20 03:13] LABS: HEMATOCRIT 35.1 % (34.6-47.8); HEMOGLOBIN 11.7 g/dL (11.7-16.4); WHITE BLOOD COUNT 8.1 x10^3/uL (3.4-10)
[2017-03-20 03:25] LABS: BLOOD UREA NITROGEN 15 mg/dL (7-18)
[2017-03-20] MEDS: GUAIFENESIN/DM 200-20MG, 10ML UDC PO SCH ×5 (06:36→21:36)
[2017-03-20 06:57] VITALS: BP 103/70
[2017-03-20] MEDS: NYSTATIN TOPICAL POWDER 15GM TP SCH ×2 (09:00→20:49)
[2017-03-20] MEDS: ENOXAPARIN 30 MG/0.3 ML SQ SCH ×2 (09:28→20:50)
[2017-03-20] MEDS: CITALOPRAM 10 MG TABLET PO SCH (09:28)
[2017-03-20] MEDS: metFORMIN 850 MG TABLET PO SCH ×2 (09:28→18:05)
[2017-03-20 13:28] VITALS: BP 117/83
[2017-03-20] MEDS: methylPREDNISolone SOD SUCC 125 MG/2 ML IV SCH ×2 (14:17→20:50)
[2017-03-20 19:40] VITALS: BP 124/73
[2017-03-20] MEDS: DIPHENHYDRAMINE 50 MG CAPSULE PO SCH (20:50)
[2017-03-20] MEDS ORDERED: INSULIN ASPART 100 UNITS/ML, PEN SQ-INSULIN ONE (21:30)
[2017-03-21 02:10] VITALS: BP 109/68
[2017-03-21] MEDS: methylPREDNISolone SOD SUCC 125 MG/2 ML IV SCH ×4 (02:25→19:42)
[2017-03-21] MEDS: CEFAZOLIN PMX 2GM/50ML 50 ML IVPB SCH ×3 (02:25→18:22)
[2017-03-21] MEDS: GUAIFENESIN/DM 200-20MG, 10ML UDC PO SCH ×5 (02:30→21:10)
[2017-03-21 02:39] LABS: HEMATOCRIT 37.7 % (34.6-47.8); HEMOGLOBIN 12.7 g/dL (11.7-16.4); WHITE BLOOD COUNT 9.5 x10^3/uL (3.4-10)
[2017-03-21 02:52] LABS: BLOOD UREA NITROGEN 11 mg/dL (7-18)
[2017-03-21] MEDS: ALBUTEROL/IPRATROPIUM 2.5MG/0.5MG, 3 ML NPPB SCH ×5 (06:00→22:00)
[2017-03-21 07:41] VITALS: BP 114/75
[2017-03-21] MEDS: metFORMIN 850 MG TABLET PO SCH ×2 (07:50→16:25)
[2017-03-21] MEDS: INSULIN DETEMIR 100 UNITS/ML, PEN SQ-INSULIN SCH ×2 (07:50→21:15)
[2017-03-21] MEDS: INSULIN ASPART 100 UNITS/ML, PEN SQ-INSULIN SCH ×4 (07:50→21:15)
[2017-03-21] MEDS: ENOXAPARIN 30 MG/0.3 ML SQ SCH ×2 (07:50→19:43)
[2017-03-21] MEDS: NYSTATIN TOPICAL POWDER 15GM TP SCH ×2 (07:50→21:00)
[2017-03-21] MEDS: CITALOPRAM 10 MG TABLET PO SCH (07:50)
[2017-03-21 12:56] VITALS: BP 109/62
[2017-03-21 18:53] VITALS: BP 131/78
[2017-03-21] MEDS: DIPHENHYDRAMINE 50 MG CAPSULE PO SCH (21:10)
[2017-03-22] MEDS: methylPREDNISolone SOD SUCC 125 MG/2 ML IV SCH ×3 (02:45→20:44)
[2017-03-22] MEDS: GUAIFENESIN/DM 200-20MG, 10ML UDC PO SCH ×4 (02:46→20:44)
[2017-03-22] MEDS: CEFAZOLIN PMX 2GM/50ML 50 ML IVPB SCH ×3 (02:46→18:36)
[2017-03-22 02:51] VITALS: BP 117/72
[2017-03-22 06:07] LABS: BLOOD UREA NITROGEN 13 mg/dL (7-18); C-REACTIVE PROTEIN, QUANT 0.27 mg/dL (0.02-0.49)
[2017-03-22 06:09] LABS: HEMATOCRIT 38.2 % (34.6-47.8); HEMOGLOBIN 12.5 g/dL (11.7-16.4)
[2017-03-22] MEDS: ALBUTEROL/IPRATROPIUM 2.5MG/0.5MG, 3 ML NPPB SCH ×5 (06:50→22:00)
[2017-03-22 06:51] VITALS: BP 115/77
[2017-03-22] MEDS: CITALOPRAM 10 MG TABLET PO SCH (08:21)
[2017-03-22] MEDS: ENOXAPARIN 30 MG/0.3 ML SQ SCH ×2 (08:21→20:44)
[2017-03-22] MEDS: metFORMIN 850 MG TABLET PO SCH ×2 (08:21→16:08)
[2017-03-22] MEDS: INSULIN ASPART 100 UNITS/ML, PEN SQ-INSULIN SCH ×4 (08:22→20:43)
[2017-03-22] MEDS: NYSTATIN TOPICAL POWDER 15GM TP SCH ×2 (08:22→20:45)
[2017-03-22] MEDS: INSULIN DETEMIR 100 UNITS/ML, PEN SQ-INSULIN SCH ×2 (08:22→20:43)
[2017-03-22 12:48] VITALS: BP 119/80
[2017-03-22 18:26] VITALS: BP 113/74
[2017-03-22] MEDS: DIPHENHYDRAMINE 50 MG CAPSULE PO SCH (20:44)
[2017-03-23 01:42] VITALS: BP 136/83
[2017-03-23] MEDS: CEFAZOLIN PMX 2GM/50ML 50 ML IVPB SCH ×2 (02:24→12:00)
[2017-03-23 06:12] LABS: BLOOD UREA NITROGEN 16 mg/dL (7-18)
[2017-03-23 06:24] LABS: HEMATOCRIT 36.1 % (34.6-47.8); WHITE BLOOD COUNT 10.9 x10^3/uL (3.4-10)
[2017-03-23] MEDS: ALBUTEROL/IPRATROPIUM 2.5MG/0.5MG, 3 ML NPPB SCH ×4 (06:58→18:47)
[2017-03-23] MEDS: CITALOPRAM 10 MG TABLET PO SCH (07:41)
[2017-03-23] MEDS: metFORMIN 850 MG TABLET PO SCH ×2 (07:41→16:47)
[2017-03-23] MEDS: ENOXAPARIN 30 MG/0.3 ML SQ SCH ×2 (07:42→20:33)
[2017-03-23] MEDS: methylPREDNISolone SOD SUCC 125 MG/2 ML IV SCH (07:42)
[2017-03-23] MEDS: INSULIN DETEMIR 100 UNITS/ML, PEN SQ-INSULIN SCH ×2 (07:42→20:33)
[2017-03-23] MEDS: NYSTATIN TOPICAL POWDER 15GM TP SCH ×2 (07:43→20:34)
[2017-03-23] MEDS: INSULIN ASPART 100 UNITS/ML, PEN SQ-INSULIN SCH ×4 (07:43→20:34)
[2017-03-23 08:58] VITALS: BP 120/81
[2017-03-23] MEDS: GUAIFENESIN/DM 200-20MG, 10ML UDC PO SCH ×4 (12:00→20:34)
[2017-03-23 13:32] VITALS: BP 112/70
[2017-03-23 20:02] VITALS: BP 116/73
[2017-03-23] MEDS: DIPHENHYDRAMINE 50 MG CAPSULE PO SCH (20:33)
[2017-03-24 00:18] VITALS: BP 122/79
[2017-03-24] MEDS ORDERED: CEFAZOLIN PMX 2GM/50ML 50 ML IVPB SCH (00:30)
[2017-03-24] MEDS: GUAIFENESIN/DM 200-20MG, 10ML UDC PO SCH ×5 (05:06→20:35)
[2017-03-24] MEDS: OXYcodone IR 5MG TABLET PO PRN (05:38)
[2017-03-24 05:48] LABS: BLOOD UREA NITROGEN 21 mg/dL (7-18)
[2017-03-24 05:55] LABS: HEMATOCRIT 38.3 % (34.6-47.8); WHITE BLOOD COUNT 11.1 x10^3/uL (3.4-10)
[2017-03-24] MEDS: ALBUTEROL/IPRATROPIUM 2.5MG/0.5MG, 3 ML NPPB SCH ×4 (07:10→19:22)
[2017-03-24] MEDS: INSULIN DETEMIR 100 UNITS/ML, PEN SQ-INSULIN SCH ×2 (07:43→20:36)
[2017-03-24] MEDS: INSULIN ASPART 100 UNITS/ML, PEN SQ-INSULIN SCH ×4 (07:43→20:36)
[2017-03-24] MEDS: ENOXAPARIN 30 MG/0.3 ML SQ SCH ×2 (07:44→20:36)
[2017-03-24] MEDS: CITALOPRAM 10 MG TABLET PO SCH (07:44)
[2017-03-24] MEDS: metFORMIN 850 MG TABLET PO SCH ×2 (07:44→16:46)
[2017-03-24] MEDS: NYSTATIN TOPICAL POWDER 15GM TP SCH ×2 (07:55→20:37)
[2017-03-24 08:00] VITALS: BP 108/74
[2017-03-24] MEDS: ERTAPENEM 1 GM in SODIUM CHLORIDE 0.9% 50 ML IV SCH (09:34)
[2017-03-24 12:44] VITALS: BP 118/73
[2017-03-24 18:40] VITALS: BP 114/75
[2017-03-24] MEDS: DIPHENHYDRAMINE 50 MG CAPSULE PO SCH (20:35)
[2017-03-25 03:24] VITALS: BP 125/81
[2017-03-25 04:32] LABS: HEMATOCRIT 39.9 % (34.6-47.8); HEMOGLOBIN 13.3 g/dL (11.7-16.4); WHITE BLOOD COUNT 10.2 x10^3/uL (3.4-10)
[2017-03-25] MEDS: GUAIFENESIN/DM 200-20MG, 10ML UDC PO SCH ×5 (05:12→20:28)
[2017-03-25 05:37] LABS: BLOOD UREA NITROGEN 19 mg/dL (7-18)
[2017-03-25 06:31] VITALS: BP 112/76
[2017-03-25] MEDS: ALBUTEROL/IPRATROPIUM 2.5MG/0.5MG, 3 ML NPPB SCH ×4 (07:45→20:00)
[2017-03-25] MEDS: CITALOPRAM 10 MG TABLET PO SCH (08:25)
[2017-03-25] MEDS: ENOXAPARIN 30 MG/0.3 ML SQ SCH ×2 (08:25→20:30)
[2017-03-25] MEDS: metFORMIN 850 MG TABLET PO SCH ×2 (08:25→17:04)
[2017-03-25] MEDS: ERTAPENEM 1 GM in SODIUM CHLORIDE 0.9% 50 ML IV SCH (08:25)
[2017-03-25] MEDS: INSULIN DETEMIR 100 UNITS/ML, PEN SQ-INSULIN SCH ×2 (08:26→20:29)
[2017-03-25] MEDS: INSULIN ASPART 100 UNITS/ML, PEN SQ-INSULIN SCH ×4 (08:27→20:29)
[2017-03-25] MEDS: NYSTATIN TOPICAL POWDER 15GM TP SCH ×2 (09:04→20:30)
[2017-03-25] MEDS: DOCUSATE 100 MG CAPSULE PO SCH ×2 (09:57→20:29)
[2017-03-25 15:32] VITALS: BP 113/76
[2017-03-25] MEDS ORDERED: hydrALAzine 20 MG/ML, 1ML IVPush PRN (16:00)
[2017-03-25] MEDS ORDERED: ACETAMINOPHEN 325 MG TABLET PO PRN (16:00)
[2017-03-25] MEDS ORDERED: PHARMACY MAY ADJ FOR RENAL FX MC PRN (16:00)
[2017-03-25] MEDS: LACTULOSE 20 GM/30 ML UDC PO SCH ×2 (17:04→22:01)
[2017-03-25 18:47] VITALS: BP 97/60
[2017-03-25] MEDS: DIPHENHYDRAMINE 50 MG CAPSULE PO SCH (20:28)
[2017-03-26 01:24] VITALS: BP 103/70
[2017-03-26] MEDS: GUAIFENESIN/DM 200-20MG, 10ML UDC PO SCH ×2 (04:54→09:26)
[2017-03-26 05:37] LABS: HEMATOCRIT 39.3 % (34.6-47.8); HEMOGLOBIN 13.1 g/dL (11.7-16.4); WHITE BLOOD COUNT 10.7 x10^3/uL (3.4-10)
[2017-03-26 05:46] LABS: BLOOD UREA NITROGEN 15 mg/dL (7-18)
[2017-03-26] MEDS: LACTULOSE 20 GM/30 ML UDC PO SCH ×2 (06:18→11:09)
[2017-03-26] MEDS: ALBUTEROL/IPRATROPIUM 2.5MG/0.5MG, 3 ML NPPB SCH ×3 (07:30→14:15)
[2017-03-26] MEDS: INSULIN ASPART 100 UNITS/ML, PEN SQ-INSULIN SCH ×2 (07:41→11:09)
[2017-03-26 07:50] VITALS: BP 100/68
[2017-03-26] MEDS: ERTAPENEM 1 GM in SODIUM CHLORIDE 0.9% 50 ML IV SCH (09:20)
[2017-03-26] MEDS: CITALOPRAM 10 MG TABLET PO SCH (09:20)
[2017-03-26] MEDS: metFORMIN 850 MG TABLET PO SCH (09:20)
[2017-03-26] MEDS: DOCUSATE 100 MG CAPSULE PO SCH (09:20)
[2017-03-26] MEDS: ENOXAPARIN 30 MG/0.3 ML SQ SCH (09:20)
[2017-03-26] MEDS: INSULIN DETEMIR 100 UNITS/ML, PEN SQ-INSULIN SCH (09:21)
[2017-03-26] MEDS: NYSTATIN TOPICAL POWDER 15GM TP SCH (09:21)
[2017-03-26] MEDS ORDERED: IPRA3AMP NPPB ×2 (13:17)
[2017-03-26] MEDS ORDERED: METF850T PO (13:17)
[2017-03-26] MEDS ORDERED: PRED10TA PO (13:17)
[2017-03-26] MEDS ORDERED: DOCU-131 PO (13:17)
[2017-03-26] MEDS ORDERED: INSU100I28 SQ-INSULIN (13:17)
[2017-03-26] MEDS ORDERED: GUAI5SYR PO (13:17)
[2017-03-26 13:35] VITALS: BP 121/86
== END 2017-03-26 15:05 | disposition home or self-care (01) | DRG 189 ==
LOC: ED 23:59 → EDIP 03-02 03:26 → 4NOR 03-02 08:06 → 3NW 03-12 17:33
PROVIDERS: ADMIT Internal Medicine; ATTEND Internal Medicine
PROC: 0B9F3ZX Drainage of Right Lower Lung Lobe, Percutaneous Approach, Diagnostic (ICD-10-PCS; principal; 2017-03-06)
PROC: 02HV33Z Insertion of Infusion Device into Superior Vena Cava, Percutaneous Approach (ICD-10-PCS; 2017-03-13)
PROC: B5181ZA Fluoroscopy of Superior Vena Cava using Low Osmolar Contrast, Guidance (ICD-10-PCS; 2017-03-13)
PROC: 8E0ZXY6 Isolation (ICD-10-PCS; 2017-03-23)
PROC: 02HV33Z Insertion of Infusion Device into Superior Vena Cava, Percutaneous Approach (ICD-10-PCS; 2017-03-25)
PROC: B5181ZA Fluoroscopy of Superior Vena Cava using Low Osmolar Contrast, Guidance (ICD-10-PCS; 2017-03-25)
DX: J96.01 Acute respiratory failure with hypoxia (principal); E43 Unspecified severe protein-calorie malnutrition; J15.211 Pneumonia due to Methicillin susceptible Staphylococcus aureus; J85.1 Abscess of lung with pneumonia; T79.7XXA Traumatic subcutaneous emphysema, initial encounter; Z68.42 Body mass index [BMI] 45.0-49.9, adult; J98.11 Atelectasis; J44.0 Chronic obstructive pulmonary disease with (acute) lower respiratory infection; D64.9 Anemia, unspecified; E86.0 Dehydration; E11.65 Type 2 diabetes mellitus with hyperglycemia; E66.01 Morbid (severe) obesity due to excess calories; E87.6 Hypokalemia; F20.9 Schizophrenia, unspecified; I10 Essential (primary) hypertension; J45.909 Unspecified asthma, uncomplicated; L29.9 Pruritus, unspecified; Z79.4 Long term (current) use of insulin; Z79.899 Other long term (current) drug therapy; Z83.3 Family history of diabetes mellitus; Z87.01 Personal history of pneumonia (recurrent)
CPT/HCPCS: 36415; 36569; 49405; 71010; 71020; 71250; 71260; 71275; 74000; 74230; 75989; 76937; 77001; 80048; 80053; 81025; 82040; 82947; 82962; 83036; 83605; 83735; 84100; 84145; 85025; 85651; 86140; 86480; 87015; 87040; 87070; 87075; 87077; 87102; 87116; 87147; 87186; 87205; 87206; 87400; 90686; 93306; 94640; 96361; 96372; 96374; 99156; 99157; J0690; J1170; J1335; J1650; J1815; J1885; J1956; J2250; J2405; J2543; J3010; J3370; J7620; Q9967; C1729; C1751; C9113; G0009; J2310; J2930; J3475; J7030; J7040; J7042; J7050; J7512

== ENCOUNTER 2017-03-31 12:18 | Emergency (ER) | payer OTHER ==
[~2017-03-31] VITALS: Ht 162.6 cm; Wt 120.4 kg
[~2017-03-31 12:18] MED LIST changes: +ALBU6.7H INH; +DOCU-131 PO; +GUAI5SYR PO; +INSU100I28 SQ-INSULIN; +IPRA3AMP NPPB; +METF850T PO; +PRED10TA PO
[2017-03-31 12:26] VITALS: BP 114/66
[2017-03-31 13:39] LABS: HEMATOCRIT 39.3 % (34.6-47.8); HEMOGLOBIN 13.1 g/dL (11.7-16.4); WHITE BLOOD COUNT 11.8 x10^3/uL (3.4-10)
[2017-03-31 13:51] LABS: BLOOD UREA NITROGEN 10 mg/dL (7-18)
== END 2017-03-31 14:38 | disposition home or self-care (01) ==
LOC: ED 13:33
DX: J18.0 Bronchopneumonia, unspecified organism (principal); E11.65 Type 2 diabetes mellitus with hyperglycemia; F20.9 Schizophrenia, unspecified; F31.9 Bipolar disorder, unspecified; I10 Essential (primary) hypertension
CPT/HCPCS: 36415; 71020; 80048; 82040; 85025; 99284; 99285

== ENCOUNTER 2017-04-10 10:11 | Inpatient (IN) | payer MEDICAID, OTHER ==
[~2017-04-10] VITALS: Ht 165.1 cm; Wt 120.9 kg
[2017-04-10] MEDS ORDERED: ERTAPENEM 1 GM IVPB ONE (11:00)
[2017-04-10] MEDS ORDERED: ALBUTEROL/IPRATROPIUM 2.5MG/0.5MG, 3 ML NPPB SCH (11:00)
[2017-04-10] MEDS ORDERED: ALBUTEROL/IPRATROPIUM 2.5MG/0.5MG, 3 ML ONE (11:12)
[2017-04-10] MEDS ORDERED: ERTAPENEM 1 GM in SODIUM CHLORIDE 0.9% 50 ML IV ONE (11:30)
[2017-04-10] MEDS ORDERED: OMNIPAQUE 350 MG/ML, 100ML BOTTLE ONE (12:35)
[2017-04-10] MEDS ORDERED: HEPARIN 5,000 UNITS/ML, 1ML IV ONE (14:00)
[2017-04-10] MEDS ORDERED: morphine SULFATE 10 MG/ML, 1ML IVPush PRN (14:30)
[2017-04-10] MEDS ORDERED: ONDANSETRON 2MG/ML, 2ML IVPush PRN (14:30)
[2017-04-10] MEDS ORDERED: BISACODYL 10 MG SUPP PR PRN (14:30)
[2017-04-10] MEDS ORDERED: POLYETHYLENE GLYCOL 17 GM PACKET PO PRN (14:30)
[2017-04-10] MEDS ORDERED: LABETALOL 5MG/ML, 20ML IVPush PRN (14:30)
[2017-04-10] MEDS ORDERED: ACETAMINOPHEN 325 MG TABLET PO PRN (14:30)
[2017-04-10] MEDS ORDERED: HYDROcodone/APAP 5/325 TABLET PO PRN (14:30)
[2017-04-10] MEDS ORDERED: HEPARIN 5,000 UNITS/ML, 1ML ONE (14:39)
[2017-04-10] MEDS ORDERED: HEPARIN 25,000 UNITS/500ML PMX 500 ML ONE (14:39)
[2017-04-10] MEDS: HEPARIN 25,000 UNITS/500ML PMX 500 ML IV PRN ×2 (14:56→15:06)
[2017-04-10] MEDS ORDERED: ALBUTEROL/IPRATROPIUM 2.5MG/0.5MG, 3 ML NPPB PRN (15:00)
[2017-04-10] MEDS: HEPARIN 5,000 UNITS/ML, 1ML IV PRN ×2 (15:06→21:57)
[2017-04-10] MEDS: metFORMIN 850 MG TABLET PO SCH (15:45)
[2017-04-10] MEDS: ALBUTEROL SULFATE INH SCH ×2 (16:00→21:00)
[2017-04-10 16:32] VITALS: BP 103/71
[2017-04-10] MEDS: INSULIN ASPART 100 UNITS/ML, PEN SQ-INSULIN SCH ×2 (17:41→21:10)
[2017-04-10] MEDS: ALBUTEROL/IPRATROPIUM 2.5MG/0.5MG, 3 ML NPPB SCH (19:45)
[2017-04-10 20:09] VITALS: BP 90/72
[2017-04-10] MEDS ORDERED: DOCUSATE 100 MG CAPSULE PO PRN (21:00)
[2017-04-10] MEDS: BENZONATATE 100 MG CAPSULE PO SCH (21:08)
[2017-04-10] MEDS: SODIUM CHLORIDE FLUSH 10ML SYR IVF SCH (21:08)
[2017-04-10] MEDS: INSULIN DETEMIR 100 UNITS/ML, PEN SQ-INSULIN SCH (21:09)
[2017-04-11 00:59] VITALS: BP 115/78
[2017-04-11] MEDS: ALBUTEROL/IPRATROPIUM 2.5MG/0.5MG, 3 ML NPPB PRN (04:01)
[2017-04-11 05:12] LABS: HEMATOCRIT 35.4 % (34.6-47.8); WHITE BLOOD COUNT 6.1 x10^3/uL (3.4-10)
[2017-04-11] MEDS: HEPARIN 5,000 UNITS/ML, 1ML IV PRN (05:28)
[2017-04-11] MEDS: ALBUTEROL SULFATE INH SCH ×4 (06:00→21:00)
[2017-04-11] MEDS: ALBUTEROL/IPRATROPIUM 2.5MG/0.5MG, 3 ML NPPB SCH ×4 (06:27→18:59)
[2017-04-11 07:30] VITALS: BP 104/67
[2017-04-11] MEDS ORDERED: CITALOPRAM 10 MG TABLET ONE (07:57)
[2017-04-11] MEDS: CITALOPRAM 10 MG TABLET PO SCH (08:01)
[2017-04-11] MEDS: BENZONATATE 100 MG CAPSULE PO SCH ×3 (08:01→22:00)
[2017-04-11] MEDS: INSULIN DETEMIR 100 UNITS/ML, PEN SQ-INSULIN SCH ×2 (08:02→21:23)
[2017-04-11] MEDS: SODIUM CHLORIDE FLUSH 10ML SYR IVF SCH ×2 (08:02→21:25)
[2017-04-11] MEDS: INSULIN ASPART 100 UNITS/ML, PEN SQ-INSULIN SCH ×4 (08:02→21:24)
[2017-04-11] MEDS: metFORMIN 850 MG TABLET PO SCH (11:04)
[2017-04-11] MEDS: WARFARIN HIGH DOSE PROTOCOL XX SCH (12:00)
[2017-04-11 13:57] VITALS: BP 92/60
[2017-04-11] MEDS: ENOXAPARIN 120MG/0.8ML SQ SCH (14:08)
[2017-04-11] MEDS: ERTAPENEM 1 GM in SODIUM CHLORIDE 0.9% 50 ML IV SCH (15:34)
[2017-04-11] MEDS ORDERED: WARFARIN 10 MG TABLET PO-COUM ONE (18:00)
[2017-04-11 19:07] VITALS: BP 120/76
[2017-04-12] MEDS: ENOXAPARIN 120MG/0.8ML SQ SCH ×2 (01:54→13:34)
[2017-04-12 02:30] VITALS: BP 120/83
[2017-04-12] MEDS: ALBUTEROL SULFATE INH SCH ×4 (06:00→20:48)
[2017-04-12] MEDS: INSULIN ASPART 100 UNITS/ML, PEN SQ-INSULIN SCH ×4 (07:00→20:48)
[2017-04-12 07:01] VITALS: BP 107/70
[2017-04-12] MEDS: ALBUTEROL/IPRATROPIUM 2.5MG/0.5MG, 3 ML NPPB SCH ×4 (07:05→20:00)
[2017-04-12] MEDS: metFORMIN 850 MG TABLET PO SCH ×2 (08:00→17:00)
[2017-04-12] MEDS: SODIUM CHLORIDE FLUSH 10ML SYR IVF SCH ×2 (09:00→20:48)
[2017-04-12] MEDS: INSULIN DETEMIR 100 UNITS/ML, PEN SQ-INSULIN SCH ×2 (09:19→20:46)
[2017-04-12] MEDS: CITALOPRAM 10 MG TABLET PO SCH (09:23)
[2017-04-12] MEDS: BENZONATATE 100 MG CAPSULE PO SCH ×3 (09:23→20:46)
[2017-04-12] MEDS: WARFARIN HIGH DOSE PROTOCOL XX SCH (12:00)
[2017-04-12 16:04] VITALS: BP 110/70
[2017-04-12] MEDS: ERTAPENEM 1 GM in SODIUM CHLORIDE 0.9% 50 ML IV SCH (16:56)
[2017-04-12] MEDS ORDERED: WARFARIN 7.5 MG TABLET PO-COUM ONE (18:00)
[2017-04-12 20:30] VITALS: BP 100/66
[2017-04-12 22:06] LABS: APTT 24.2 sec (.); PROTHROMBIN TIME 10.6 sec (.)
[2017-04-13] MEDS: ENOXAPARIN 120MG/0.8ML SQ SCH ×2 (01:14→13:42)
[2017-04-13 02:54] VITALS: BP 100/70
[2017-04-13] MEDS: ALBUTEROL/IPRATROPIUM 2.5MG/0.5MG, 3 ML NPPB PRN (04:09)
[2017-04-13 05:54] LABS: HEMATOCRIT 39.5 % (34.6-47.8); HEMOGLOBIN 13.2 g/dL (11.7-16.4); WHITE BLOOD COUNT 8.5 x10^3/uL (3.4-10)
[2017-04-13] MEDS: ALBUTEROL SULFATE INH SCH ×4 (06:28→20:48)
[2017-04-13] MEDS: ALBUTEROL/IPRATROPIUM 2.5MG/0.5MG, 3 ML NPPB SCH ×4 (06:40→19:20)
[2017-04-13] MEDS: INSULIN ASPART 100 UNITS/ML, PEN SQ-INSULIN SCH ×4 (07:00→20:48)
[2017-04-13 07:13] VITALS: BP 102/67
[2017-04-13] MEDS: metFORMIN 850 MG TABLET PO SCH ×2 (07:39→19:12)
[2017-04-13] MEDS: INSULIN DETEMIR 100 UNITS/ML, PEN SQ-INSULIN SCH ×2 (07:46→20:48)
[2017-04-13] MEDS: CITALOPRAM 10 MG TABLET PO SCH (07:46)
[2017-04-13] MEDS: SODIUM CHLORIDE FLUSH 10ML SYR IVF SCH ×2 (07:46→20:48)
[2017-04-13] MEDS: BENZONATATE 100 MG CAPSULE PO SCH ×3 (07:46→20:47)
[2017-04-13] MEDS: WARFARIN HIGH DOSE PROTOCOL XX SCH (12:00)
[2017-04-13 14:55] VITALS: BP 104/73
[2017-04-13] MEDS: ERTAPENEM 1 GM in SODIUM CHLORIDE 0.9% 50 ML IV SCH (17:01)
[2017-04-13] MEDS ORDERED: WARFARIN 5 MG TABLET PO-COUM ONE (18:00)
[2017-04-13 18:54] VITALS: BP 99/61
[2017-04-14] MEDS: ENOXAPARIN 120MG/0.8ML SQ SCH ×2 (01:17→14:15)
[2017-04-14 04:26] VITALS: BP 109/75
[2017-04-14] MEDS: ALBUTEROL SULFATE INH SCH ×4 (05:08→21:00)
[2017-04-14] MEDS: INSULIN ASPART 100 UNITS/ML, PEN SQ-INSULIN SCH ×4 (07:00→21:11)
[2017-04-14] MEDS: ALBUTEROL/IPRATROPIUM 2.5MG/0.5MG, 3 ML NPPB SCH ×4 (07:30→18:55)
[2017-04-14 07:49] VITALS: BP 101/61
[2017-04-14] MEDS: BENZONATATE 100 MG CAPSULE PO SCH ×3 (11:45→21:09)
[2017-04-14] MEDS: CITALOPRAM 10 MG TABLET PO SCH (11:46)
[2017-04-14] MEDS: SODIUM CHLORIDE FLUSH 10ML SYR IVF SCH ×2 (11:46→21:11)
[2017-04-14] MEDS: metFORMIN 850 MG TABLET PO SCH ×2 (11:46→17:12)
[2017-04-14] MEDS: INSULIN DETEMIR 100 UNITS/ML, PEN SQ-INSULIN SCH ×2 (11:47→21:10)
[2017-04-14] MEDS: WARFARIN HIGH DOSE PROTOCOL XX SCH (11:48)
[2017-04-14 13:54] VITALS: BP 102/66
[2017-04-14] MEDS ORDERED: WARFARIN 2 MG TABLET PO-COUM ONE (18:00)
[2017-04-14] MEDS ORDERED: CLOTRIMAZOLE VAGINAL CRM 1%, 45GM VG SCH (21:00)
[2017-04-14 21:19] VITALS: BP 99/66
[2017-04-15] MEDS: ENOXAPARIN 120MG/0.8ML SQ SCH (01:11)
[2017-04-15 02:42] VITALS: BP 101/69
[2017-04-15 05:23] LABS: HEMATOCRIT 37.1 % (34.6-47.8); HEMOGLOBIN 12.4 g/dL (11.7-16.4); WHITE BLOOD COUNT 8.9 x10^3/uL (3.4-10)
[2017-04-15 05:37] LABS: BLOOD UREA NITROGEN 13 mg/dL (7-18)
[2017-04-15] MEDS: ALBUTEROL SULFATE INH SCH (06:00)
[2017-04-15] MEDS: ALBUTEROL/IPRATROPIUM 2.5MG/0.5MG, 3 ML NPPB SCH ×2 (06:40→10:20)
[2017-04-15] MEDS: INSULIN ASPART 100 UNITS/ML, PEN SQ-INSULIN SCH (07:00)
[2017-04-15 07:16] VITALS: BP 100/65
[2017-04-15] MEDS ORDERED: WARF5TAB PO (08:14)
[2017-04-15] MEDS: BENZONATATE 100 MG CAPSULE PO SCH (09:54)
[2017-04-15] MEDS: CITALOPRAM 10 MG TABLET PO SCH (09:55)
[2017-04-15] MEDS: metFORMIN 850 MG TABLET PO SCH (09:55)
[2017-04-15] MEDS: SODIUM CHLORIDE FLUSH 10ML SYR IVF SCH (09:55)
[2017-04-15] MEDS: INSULIN DETEMIR 100 UNITS/ML, PEN SQ-INSULIN SCH (09:57)
== END 2017-04-15 11:31 | disposition home health service (06) | DRG 175 ==
LOC: ED 10:41 → EDIP 13:41 → 5SO 15:24 → 3NE 04-11 16:28
PROVIDERS: ADMIT Family Medicine; ATTEND Family Medicine
DX: I26.99 Other pulmonary embolism without acute cor pulmonale (principal); J85.1 Abscess of lung with pneumonia; J15.9 Unspecified bacterial pneumonia; E44.0 Moderate protein-calorie malnutrition; J45.901 Unspecified asthma with (acute) exacerbation; E11.65 Type 2 diabetes mellitus with hyperglycemia; F20.9 Schizophrenia, unspecified; Z68.41 Body mass index [BMI] 40.0-44.9, adult; F31.9 Bipolar disorder, unspecified; I10 Essential (primary) hypertension; Z79.4 Long term (current) use of insulin; Z83.3 Family history of diabetes mellitus; Z88.1 Allergy status to other antibiotic agents
CPT/HCPCS: 36415; 71275; 80048; 81241; 82947; 82962; 85025; 85303; 85306; 85520; 85598; 85610; 85613; 85670; 85730; 85732; 86146; 86147; 93005; 93306; 93970; 94640; 96365; 96375; J1335; J1644; J1650; J1815; J7620; Q9967; J7512

== ENCOUNTER 2017-11-01 09:49 | Emergency (ER) | payer MEDICAID, OTHER ==
[~2017-11-01] VITALS: Ht 167.6 cm; Wt 125.9 kg
[~2017-11-01 09:49] MED LIST changes: +WARF5TAB PO
[2017-11-01 10:52] LABS: BASOPHILS # (AUTO) 0.07 x10^3/uL (0-0.1); BASOPHILS % (AUTO) 1 % (0-1); EOSINOPHILS # (AUTO) 0.46 x10^3/uL (0-0.4); EOSINOPHILS % (AUTO) 4 % (1-7); LYMPHOCYTES # (AUTO) 1.62 x10^3/uL (1-3.4); LYMPHOCYTES % (AUTO) 13 % (22-44); MD NO; MEAN CORPUSCULAR HEMOGLOBIN 29.2 pg (27.0-34.8); MEAN CORPUSCULAR HGB CONC 34.2 g/dL (32.4-35.8); MEAN CORPUSCULAR VOLUME 85.4 fL (80-100); MEAN PLATELET VOLUME 9.8 fL (7.4-10.4); MONOCYTES # (AUTO) 0.36 x10^3/uL (0.2-0.8); MONOCYTES % (AUTO) 3 % (2-9); NEUTROPHILS # (AUTO) 10.42 x10^3/uL (1.8-6.8); NEUTROPHILS % (AUTO) 81 % (42-75); PLATELET COUNT 204 x10^3/uL (130-400); RED BLOOD COUNT 5.46 x10^6/uL (3.82-5.3); RED CELL DISTRIBUTION WIDTH 12.9 % (9.6-15.2)
[2017-11-01 10:58] LABS: INTERNATIONAL NORMALIZED RATIO 0.98 (0.93-1.1); PROTHROMBIN TIME 10.2 Seconds (9.6-11.5)
[2017-11-01 11:00] LABS: ALBUMIN 3.5 g/dL (3.4-5.0); ANION GAP 9 mmol/L (5-15); CALCIUM 8.5 mg/dL (8.5-10.1); CHLORIDE 100 mmol/L (98-107)
[2017-11-01] MEDS ORDERED: SODIUM CHLORIDE FLUSH 10ML SYR IVF ONE (11:00)
[2017-11-01 11:06] LABS: ALANINE AMINOTRANSFERASE 20 U/L (12-78); ALKALINE PHOSPHATASE 96 U/L (45-117); BILIRUBIN,TOTAL 0.8 mg/dL (0.2-1.0); CREATININE 0.77 mg/dL (0.55-1.02); TOTAL PROTEIN 7.6 g/dL (6.4-8.2)
[2017-11-01] MEDS ORDERED: ONDANSETRON ODT 4 MG ONE (12:06)
[2017-11-01 12:36] LABS: CULTURE INDICATED? YES; MICROSCOPIC INDICATED
[2017-11-01] MEDS ORDERED: ONDANSETRON ODT 4 MG PO ONE (13:00)
[2017-11-01 13:15] VITALS: BP 119/80
[2017-11-01] MEDS ORDERED: OMNIPAQUE 350 MG/ML, 150 ML BOTTLE ONE (13:39)
== END 2017-11-01 14:40 | disposition home or self-care (01) ==
LOC: ED 11:54
DX: N30.91 Cystitis, unspecified with hematuria (principal); E11.65 Type 2 diabetes mellitus with hyperglycemia; Z76.0 Encounter for issue of repeat prescription; I10 Essential (primary) hypertension; F17.200 Nicotine dependence, unspecified, uncomplicated
CPT/HCPCS: 36415; 74177; 80053; 81001; 82962; 83690; 84703; 85025; 85610; 85730; 87077; 87086; 87186; 99285; Q0162; Q9967

== ENCOUNTER 2018-05-07 12:37 | Emergency (ER) | payer SELFPAY ==
[~2018-05-07] VITALS: Ht 162.6 cm; Wt 123.5 kg
[~2018-05-07 12:37] MED LIST changes: -IPRA3AMP NPPB; +IPRA3AMP30 NPPB; +METF500T17 PO; -METF500T4 PO
[2018-05-07 14:28] LABS: CLUE CELLS PRESENT (NONE SEEN)
[2018-05-07 14:29] LABS: WET PREP WBCS MODERATE (FEW)
[2018-05-07 15:23] LABS: CULTURE INDICATED? YES; MICROSCOPIC INDICATED
[2018-05-07 15:24] LABS: HCG UR SG > 1.045 (1.003-1.030)
[2018-05-07] MEDS ORDERED: FLUCONAZOLE 100 MG TABLET PO ONE (15:30)
[2018-05-07] MEDS ORDERED: CEFTRIAXONE 1,000 MG ONE (15:50)
[2018-05-07] MEDS ORDERED: FLUCONAZOLE 100 MG TABLET ONE (15:50)
[2018-05-07] MEDS ORDERED: PHENAZOPYRIDINE 200 MG TABLET ONE (15:50)
[2018-05-07] MEDS ORDERED: LIDOCAINE-MPF 1%, 2ML ONE (15:50)
[2018-05-07] MEDS ORDERED: LIDOCAINE-MPF 1%, 5ML ONE (15:51)
[2018-05-07] MEDS ORDERED: PHENAZOPYRIDINE 200 MG TABLET PO ONE (16:00)
[2018-05-07] MEDS ORDERED: CEFTRIAXONE 1,000 MG IM ONE (16:00)
[2018-05-07 16:38] VITALS: BP 141/89
== END 2018-05-07 16:40 | disposition home or self-care (01) ==
LOC: ED 15:50
DX: N76.0 Acute vaginitis (principal); N30.00 Acute cystitis without hematuria; E11.65 Type 2 diabetes mellitus with hyperglycemia; I10 Essential (primary) hypertension; F20.9 Schizophrenia, unspecified; F31.9 Bipolar disorder, unspecified
CPT/HCPCS: 81001; 81025; 82962; 87077; 87086; 87210; 87491; 87591; 87808; 96372; 99283; J0696; 87186

== ENCOUNTER 2018-06-18 21:16 | Emergency (ER) | payer OTHER ==
[~2018-06-18] VITALS: Ht 167.6 cm; Wt 126.0 kg
[2018-06-18] MEDS ORDERED: ALBUTEROL/IPRATROPIUM 2.5MG/0.5MG, 3 ML NPPB ONE (21:30)
[2018-06-18] MEDS ORDERED: ALBUTEROL/IPRATROPIUM 2.5MG/0.5MG, 3 ML ONE (21:43)
--- NOTE | 2018-06-18 21:53 | NUR ---
PATIENT CAN NOT BE STILL FOR EKG. TOLD THIS TECH TO REPEAT EKG AT LATER TIME.
[2018-06-18 21:56] LABS: BASOPHILS # (AUTO) 0.09 x10^3/uL (0-0.1); BASOPHILS % (AUTO) 1 % (0-1); EOSINOPHILS # (AUTO) 1.24 x10^3/uL (0-0.4); EOSINOPHILS % (AUTO) 10 % (1-7); LYMPHOCYTES # (AUTO) 2.68 x10^3/uL (1-3.4); LYMPHOCYTES % (AUTO) 22 % (22-44); MD NO; MEAN CORPUSCULAR HEMOGLOBIN 29.3 pg (27.0-34.8); MEAN CORPUSCULAR HGB CONC 33.9 g/dL (32.4-35.8); MEAN CORPUSCULAR VOLUME 86.2 fL (80-100); MEAN PLATELET VOLUME 8.7 fL (7.4-10.4); MONOCYTES # (AUTO) 0.27 x10^3/uL (0.2-0.8); MONOCYTES % (AUTO) 2 % (2-9); NEUTROPHILS # (AUTO) 8.15 x10^3/uL (1.8-6.8); NEUTROPHILS % (AUTO) 66 % (42-75); PLATELET COUNT 238 x10^3/uL (130-400); RED CELL DISTRIBUTION WIDTH 12.7 % (9.6-15.2)
[2018-06-18 22:09] LABS: ALANINE AMINOTRANSFERASE 16 U/L (12-78); ANION GAP 7 mmol/L (5-15); CALCIUM 8.3 mg/dL (8.5-10.1); CHLORIDE 105 mmol/L (98-107); CREATININE 0.68 mg/dL (0.55-1.02)
--- NOTE | 2018-06-18 22:09 | NUR ---
EKG DONE AFTER RESP. TREATMENT.
[2018-06-18 22:13] LABS: ALKALINE PHOSPHATASE 56 U/L (45-117); BILIRUBIN,TOTAL 0.4 mg/dL (0.2-1.0); TOTAL PROTEIN 5.8 g/dL (6.4-8.2); TROPONIN I < 0.015 ng/mL (0.000-0.045)
[2018-06-18 22:36] VITALS: BP 110/75
== END 2018-06-18 22:37 | disposition home or self-care (01) ==
LOC: ED 21:28
DX: R06.00 Dyspnea, unspecified (principal); E11.65 Type 2 diabetes mellitus with hyperglycemia; I10 Essential (primary) hypertension; F31.9 Bipolar disorder, unspecified; F20.9 Schizophrenia, unspecified; Z72.9 Problem related to lifestyle, unspecified
CPT/HCPCS: 36415; 71046; 80053; 83880; 84484; 85025; 93005; 94640; 99284; J7620

== ENCOUNTER 2019-08-16 06:37 | Emergency (ER) | payer SELFPAY ==
[~2019-08-16] VITALS: Ht 170.2 cm; Wt 119.3 kg
[~2019-08-16 06:37] MED LIST changes: -ALBU6.7H INH; +ALBU6.7H8 INH; +metformin PO
[2019-08-16 06:41] VITALS: BP 133/82
[2019-08-16] MEDS ORDERED: ALBUTEROL/IPRATROPIUM 2.5MG/0.5MG, 3 ML NPPB SCH (07:00)
[2019-08-16] MEDS ORDERED: ALBUTEROL/IPRATROPIUM 2.5MG/0.5MG, 3 ML ONE (07:10)
[2019-08-16 07:42] LABS: RAPID INFLUENZA A Negative (Negative); RAPID INFLUENZA B Negative (Negative)
--- NOTE | 2019-08-16 09:20 | NUR ---
Patient given discharge instructions and they have confirmed that they understand the instructions. Patient ambulatory with steady gait.
== END 2019-08-16 09:21 | disposition home or self-care (01) ==
LOC: ED 08:45
DX: Z03.818 Encounter for observation for suspected exposure to other biological agents ruled out (principal); J45.30 Mild persistent asthma, uncomplicated; B34.9 Viral infection, unspecified; E11.9 Type 2 diabetes mellitus without complications; I10 Essential (primary) hypertension
CPT/HCPCS: 71046; 87081; 87400; 87486; 87581; 87633; 87798; 87880; 94640; 99284; J7512

== ENCOUNTER 2019-09-19 17:08 | Emergency (ER) | payer OTHER ==
[~2019-09-19] VITALS: Ht 167.6 cm; Wt 118.3 kg
[2019-09-19] MEDS ORDERED: ALBUTEROL/IPRATROPIUM 2.5MG/0.5MG, 3 ML ONE ×3 (17:23→20:30)
--- NOTE | 2019-09-19 17:48 | NUR ---
VITALS AND EKG COMPLETED IN TRIAGE BY THIS TECH
--- NOTE | 2019-09-19 17:53 | NUR ---
esa tx admin per order by this rn. papr worn throughout procedure.
--- NOTE | 2019-09-19 17:54 | NUR ---
zx ray at room. advised to wear papr while in room.
[2019-09-19] MEDS ORDERED: ALBUTEROL/IPRATROPIUM 2.5MG/0.5MG, 3 ML NPPB ONE ×2 (18:00→20:30)
--- NOTE | 2019-09-19 19:20 | NUR ---
pt resting comfortably in bed this time. nadn. pt speaking in full sentences and expresses no wants or needs at thsi time.
[2019-09-19] MEDS ORDERED: ALBUTEROL/IPRATROPIUM 2.5MG/0.5MG, 3 ML NPPB PRN (19:30)
--- NOTE | 2019-09-19 19:34 | NUR ---
follow up duo-neb requested from provider for an increase in wheezing. procedure completed in papr and room on airborne precautions.
--- NOTE | 2019-09-19 19:36 | NUR ---
pt requesting refill on inhaler for home. provider made aware.
[2019-09-19] MEDS ORDERED: SODIUM CHLORIDE FLUSH 10ML SYR IVF ONE (20:30)
[2019-09-19] MEDS ORDERED: MAGNESIUM SULFATE PMX 2GM/50ML 50 ML IV ONE (20:30)
[2019-09-19] MEDS ORDERED: MAGNESIUM SULFATE PMX 2GM/50ML 50 ML ONE (20:31)
[2019-09-19 20:38] VITALS: BP 149/67
--- NOTE | 2019-09-19 20:39 | NUR ---
3rd breathing tzx being admin. pt medicated per order. pt still requiring o2. pt in no obvious respiratory distress but unable to achieve a room air sat of greater than 93 without o2. aware.
[2019-09-19 21:22] LABS: BASOPHILS # (AUTO) 0.02 x10^3/uL (0-0.1); BASOPHILS % (AUTO) 0 % (0-1); EOSINOPHILS # (AUTO) 0.34 x10^3/uL (0-0.4); EOSINOPHILS % (AUTO) 3 % (1-7); LYMPHOCYTES # (AUTO) 1.61 x10^3/uL (1-3.4); LYMPHOCYTES % (AUTO) 16 % (22-44); MD NO; MEAN CORPUSCULAR HEMOGLOBIN 29.4 pg (27.0-34.8); MEAN CORPUSCULAR HGB CONC 33.8 g/dL (32.4-35.8); MEAN CORPUSCULAR VOLUME 87.2 fL (80-100); MEAN PLATELET VOLUME 9.2 fL (7.4-10.4); MONOCYTES % (AUTO) 1 % (2-9); NEUTROPHILS # (AUTO) 8.02 x10^3/uL (1.8-6.8); NEUTROPHILS % (AUTO) 80 % (42-75); PLATELET COUNT 286 x10^3/uL (130-400); RED BLOOD COUNT 5.17 x10^6/uL (3.82-5.3); RED CELL DISTRIBUTION WIDTH 13.2 % (9.6-15.2)
[2019-09-19 21:29] LABS: ALBUMIN 3.6 g/dL (3.4-5.0); ANION GAP 10 mmol/L (5-15); CALCIUM 9.1 mg/dL (8.5-10.1); CHLORIDE 103 mmol/L (98-107); CREATININE 0.76 mg/dL (0.55-1.02)
--- NOTE | 2019-09-19 21:49 | NUR ---
Report received from CASANDRA Jaimes. This RN to assume care.
--- NOTE | 2019-09-19 22:19 | NUR ---
Patient spoke with ERP about her options. Patient decided to sign out AMA due to small children at home. Patient waited for discharge paperwork to get Rxs and info to follow up. Risks and benefits explained to patient and she understood. AMA signed.
== END 2019-09-19 22:21 | disposition left against medical advice (07) ==
LOC: ED 18:10
DX: J45.42 Moderate persistent asthma with status asthmaticus (principal); Z20.828 Contact with and (suspected) exposure to other viral communicable diseases; J96.01 Acute respiratory failure with hypoxia; F20.9 Schizophrenia, unspecified; I10 Essential (primary) hypertension; E11.9 Type 2 diabetes mellitus without complications
CPT/HCPCS: 36415; 71045; 80048; 82040; 85025; 93005; 96365; 96366; 99291; J3475; J7512; U0001; 99285

== ENCOUNTER 2019-11-26 16:40 | Emergency (ER) | payer SELFPAY ==
[~2019-11-26] VITALS: Ht 167.6 cm; Wt 116.0 kg
[~2019-11-26 16:40] MED LIST changes: -WARF5TAB PO; +WARF5TAB2 PO
[2019-11-26 16:42] VITALS: BP 127/82
== END 2019-11-26 17:16 | disposition home or self-care (01) ==
LOC: ED 17:10
DX: K08.89 Other specified disorders of teeth and supporting structures (principal); I10 Essential (primary) hypertension; E11.9 Type 2 diabetes mellitus without complications; Z86.711 Personal history of pulmonary embolism
CPT/HCPCS: 99283